=== PATIENT | male | born 1990 | race Hispanic/Latino ===

== ENCOUNTER 2017-12-30 00:47 | Emergency (ER) | payer OTHER ==
[2017-12-30 01:32] VITALS: BMI 28.0
[2017-12-30 01:34] VITALS: RESP 18; TEMP 98.7; O2SAT 98
[2017-12-30 01:39] VITALS: BP 115/69; PULSE 92
--- NOTE | 2017-12-30 01:40 | ED PDOC ---
HPI: Psych/Substance Abuse Time Seen by Provider: 12/30/17 01:29 Chief Complaint (Nursing): Alcohol Ingestion History Per: Patient History/Exam Limitations: no limitations Onset/Duration Of Symptoms: Hrs Current Symptoms Are (Timing): Still Present Modifying Factor(s): Alcohol Additional History Per: Patient Additional Complaint(s): 27 y/o male who was brought in by EMS for public intoxication, offers no complaints. Admits to drinking beer and liquor tonight. Past Medical History Vital Signs: Last Vital Signs Temp 98.7 F 12/30/17 01:32 Pulse 87 12/30/17 01:32 Resp 18 12/30/17 01:32 BP 155/105 H 12/30/17 01:32 Pulse Ox 98 12/30/17 01:32 - Medical History PMH: No Chronic Diseases - Surgical History Surgical History: No Surg Hx - Family History Family History: States: Unknown Family Hx - Social History Alcohol: Social - Allergies Allergies/Adverse Reactions: Allergies Allergy/AdvReac Type Severity Reaction Status Date / Time No Known Allergies Allergy Verified 12/30/17 01:31 Review of Systems ROS Statement: Except As Marked, All Systems Reviewed And Found Negative Physical Exam - Reviewed Nursing Documentation Reviewed: Yes Vital Signs Reviewed: Yes - Physical Exam Appears: Positive for: Well, No Acute Distress. Negative for: Non-toxic ( alcohol on breath) Head Exam: Positive for: ATRAUMATIC, NORMAL INSPECTION, NORMOCEPHALIC Skin: Positive for: Normal Color, Warm, DRY Eye Exam: Positive for: EOMI, Normal appearance, PERRL ENT: Positive for: Normal ENT Inspection Neck: Positive for: Normal, Painless ROM Cardiovascular/Chest: Positive for: Regular Rate, Rhythm Respiratory: Positive for: CNT, Normal Breath Sounds Gastrointestinal/Abdominal: Positive for: Normal Exam, Soft Back: Positive for: Normal Inspection Extremity: Positive for: Normal ROM Neurologic/Psych: Positive for: Alert, Oriented, Gait (steady), Other (speech clear) - ECG O2 Sat by Pulse Oximetry: 98 Medical Decision Making Medical Decision Making: Impression: Intoxication Patient is clinically sober. He lives near the hospital and is comfortable walking home. All questions answered. Patient discharged in stable condition. Scribe Attestation Documented by Brenna Purdy acting as a scribe for APRIL Mansfield MD Scribe Attestation All medical record entries made by the Scribe were at my direction and personally dictated by me. I have reviewed the chart and agree that the record accurately reflects my personal performance of the history, physical exam, medical decision making, and the department course for this patient. I have also personally directed, reviewed, and agree with the discharge instructions and disposition. Disposition - Clinical Impression Clinical Impression: Alcohol intoxication - Patient ED Disposition Is Patient to be Admitted: No - Disposition Disposition: Routine/Home Disposition Time: 01:40 Condition: STABLE Instructions: Effects of Alcohol on Your Health Forms: [facility] (Portuguese) Print Language: CYMRO
== END 2017-12-30 01:50 | disposition home or self-care (01) ==
LOC: H.ER 00:47
DX: F10.129 Alcohol abuse with intoxication, unspecified (principal)